=== PATIENT | male | born 1955 | race Caucasian/White ===

== ENCOUNTER 2020-04-11 15:33 | Emergency (ER) | payer OTHER ==
[~2020-04-11] VITALS: Ht 172.7 cm; Wt 89.0 kg
[2020-04-11] MEDS ORDERED: LIDOCAINE 1% Multi-Dose 20 ML VIAL. INJ ONE (16:15)
[2020-04-11] MEDS ORDERED: LIDOCAINE/EPI/TETRACAINE TOPICAL GEL 3 ML. TP ONE (16:15)
--- NOTE | 2020-04-11 16:32 | RAD ---
Exam: Left wrist 3 views INDICATION: Left ulnar wrist pain after with sausage grinder TECHNIQUE: Frontal, lateral and oblique views of the left wrist Comparisons: None FINDINGS: Bone mineralization is normal. No acute or healed fractures. Soft tissues are unremarkable. Joint spaces are well-maintained. IMPRESSION: No acute osseous abnormality. Electronically signed by: Rebel Ly MD (04/11/2020 4:29 PM) [id number]
--- NOTE | 2020-04-11 18:21 | PHYS DOC ---
Past Medical History Past Medical History: Diabetes-Type II, High Cholesterol, Hypertension Past Surgical History: No Surgical History Smoking Status: Never Smoker Alcohol Use: None General Adult EDM: Chief Complaint: LACERATION/AVULSION HPI: HPI: Patient is a 65 year old male who presents with left wrist laceration. Patient accidentally cut himself with a color grinder. Patient is right-handed. Review of Systems: Review of Systems: Constitutional: Denies fever or chills. [] Musculoskeletal: Reports left wrist laceration Neurologic: Denies headache, focal weakness or sensory changes. [] Psychiatric: Denies depression or anxiety. [] Heart Score: Risk Factors: Risk Factors: DM, Current or recent (<one month) smoker, HTN, HLP, family history of CAD, obesity. Risk Scores: Score 0 - 3: 2.5% MACE over next 6 weeks - Discharge Home Score 4 - 6: 20.3% MACE over next 6 weeks - Admit for Clinical Observation Score 7 - 10: 72.7% MACE over next 6 weeks - Early Invasive Strategies Current Medications: Current Medications Medications (Trade) Dose Ordered Sig/Glenny Start Time Stop Time Status Last Admin Dose Admin Lidocaine HCl (Lidocaine 1% 20ml Vial) 20 ml 1X ONCE 04/11/20 16:15 04/11/20 16:16 DC 04/11/20 16:16 20 ML Tetracaine/ Epinephrine/ Lidocaine (Let ([id number]) Gel) 3 ml 1X ONCE 04/11/20 16:15 04/11/20 16:16 DC 04/11/20 16:16 3 ML Allergies: Allergies: Allergies Coded Allergies Type Severity Reaction Last Updated Verified No Known Drug Allergies 04/11/20 No Physical Exam: PE: Constitutional: Well developed, well nourished, no acute distress, non-toxic appearance. [] Skin: See extremity Back: No tenderness, no CVA tenderness. [] Extremities: Left wrist with laceration on the lateral aspect, laceration approximately 5 cm long, there is no obvious tendon involvement. Patient able to flex and extend the left wrist with no issues. Adequate radial, medial, ulnar sensation to the left fingers. +2 left radial pulse. Cap refill less than 2 seconds to left fingers. Neurologic: Alert and oriented X 3, normal motor function, normal sensory function, no focal deficits noted. [] Psychologic: Affect normal, judgement normal, mood normal. [] Current Patient Data: Vital Signs: Vital Signs Date Time Temp Pulse Resp B/P (MAP) Pulse Ox O2 Delivery O2 Flow Rate FiO2 04/11/20 15:40 97.9 89 22 134/70 (91) 96 Room Air 97.9 EKG: EKG: [] Radiology/Procedures: Radiology/Procedures: []PROCEDURE: WRIST 3V LEFT Exam: Left wrist 3 views INDICATION: Left ulnar wrist pain after with color grinder TECHNIQUE: Frontal, lateral and oblique views of the left wrist Comparisons: None FINDINGS: Bone mineralization is normal. No acute or healed fractures. Soft tissues are unremarkable. Joint spaces are well-maintained. IMPRESSION: No acute osseous abnormality. Electronically signed by: Rebel Dave MD (04/11/2020 4:29 PM) [id number] DICTATED and SIGNED BY: REBEL DAVE MD DATE: 04/11/20 1629 Laceration/Wound Repair Wound Location: Left wrist Wound's Depth, Shape: Horizontal Wound Length (cm): Approximately 5 cm Wound Explored: clean Irrigated w/ Saline (ccs): 50 Betadine Prep?: Y Anesthesia: 1% of lidocaine Volume Anesthetic (ccs): Approximately 6 cc Wound Repaired With: Vicryl 4.0 Suture Type: 2 interrupted sutures applied internally, 8 interrupted sutures were done externally Progress : Wound was covered with nonstick dressing Course & Med Decision Making: Course & Med Decision Making Pertinent Labs and Imaging studies reviewed. (See chart for details) This is a 65-year-old male patient with left wrist laceration that was closed by me as noted in procedures. Wound care instructions and return precautions provided. Discharge to home. Follow-up with PCP in 1 to 2 weeks. Tetanus is up-to-date. Dragon Disclaimer: Dragon Disclaimer: This electronic medical record was generated, in whole or in part, using a voice recognition dictation system. Departure Departure Impression: Primary Impression: Laceration of left wrist Qualified Codes: S61.512A - Laceration without foreign body of left wrist, initial encounter Disposition: HOME, SELF-CARE Condition: STABLE Referrals: CHELA ESCAMILLA MD (PCP) Follow-up with your doctor in 1 to 2 weeks as needed Patient Instructions: Laceration Care, Adult Additional Instructions: You have a laceration to the left wrist that was closed with dissolvable s titches. Keep the area clean and dry. Follow-up with your own doctor in 1 to 2 weeks. Apply Neosporin to the area twice a day. You can remove the dressing tomorrow if is not bleeding or draining. Monitor the area for any signs of infection including increased redness, warmth, yellow drainage from the area and return to the ED if they occur. Justicifation of Admission Dx: Justifications for Admission: Justification of Admission Dx: N/A EMILY RODRIGUEZ APRN Apr 11, 2020 18:21
[2020-04-11 18:30] VITALS: BP 139/72
== END 2020-04-11 18:30 | disposition home or self-care (01) ==
LOC: ER 15:33
DX: S61.512A Laceration without foreign body of left wrist, initial encounter (principal); R20.2 Paresthesia of skin; E11.9 Type 2 diabetes mellitus without complications; E78.00 Pure hypercholesterolemia, unspecified; I10 Essential (primary) hypertension; W26.8XXA Contact with other sharp object(s), not elsewhere classified, initial encounter; Y93.89 Activity, other specified; Y92.89 Other specified places as the place of occurrence of the external cause; Y99.8 Other external cause status
CPT/HCPCS: 12002; 73110; 99283; J3490